=== PATIENT | male | born 1960 | race Caucasian/White ===

== ENCOUNTER 2021-09-18 21:30 | Observation (INO) ==
[2021-09-18] MEDS ORDERED: 0.9 % Sodium Chloride 1,000 ML IVC ONE (21:51)
[2021-09-18] MEDS ORDERED: Iopamidol - 370 500 ML MLS IVP ONE (21:51)
[2021-09-18 22:12] LABS: Basophils % 0.2 %; Eosinophils # 0.2 K/mcL (0.0-0.6); Eosinophils % 2.7 %; Hematocrit 31.7 % (37.5-50.1); Hemoglobin 10.6 g/dL (12.9-16.9); Immature Granulocytes % 0.2 % (0-4); Lymphocytes # 1.8 K/mcL (0.6-4.6); Lymphocytes % 21.6 %; Mean Corpuscular HGB Conc 33.4 g/dL (31.6-35.5); Mean Corpuscular Hemoglobin 31.7 pg (28.0-33.3); Mean Corpuscular Volume 94.9 fL (83.0-100.0); Mean Platelet Volume 10.6 fL (9.4-12.4); Monocytes # 0.6 K/mcL (0.0-1.3); Monocytes % 7.3 %; Neutrophils # 5.8 K/mcL (1.6-8.9); Platelet Count 192 K/mcL (140-400); Red Blood Count 3.34 M/mcL (4.19-5.50); Red Cell Distribution Width 13.4 % (11.5-14.5); White Blood Count 8.5 K/mcL (4.3-11.1)
[2021-09-18 22:25] LABS: Prothrombin Time 11.1 Seconds (9.4-12.1)
[2021-09-18 22:27] LABS: Alanine Aminotransferase 42 Units/L (7-52); Albumin 4.1 g/dL (3.5-5.7); Albumin/Globulin Ratio 1.5 (1.1-2.2); Alkaline Phosphatase 67 Units/L (34-104); Aspartate Amino Transferase 59 Units/L (13-39); BUN/Creatinine Ratio 12 (6-26); Bilirubin,Total 0.6 mg/dL (0.3-1.0); Blood Urea Nitrogen 58 mg/dL (6-20); Calcium 8.6 mg/dL (8.6-10.3); Carbon Dioxide 22 mEq/L (23-29); Chloride 100 mEq/L (98-107); Globulin 2.7 g/dL (2.4-3.5); Glucose 93 mg/dL (70-105); Osmolality,Calculated 292 (280-300); Potassium 5.2 mEq/L (3.5-5.1); Sodium 133 mEq/L (136-145); Total Protein 6.8 g/dL (6.4-8.9); eGFR For African Americans 16 (> 60); eGFR For Non-African Americans 13 (> 60)
[2021-09-18 22:28] LABS: Activated Partial Thrombo Time 48.1 Seconds (26.0-36.0); Troponin I < 0.03 ng/mL (< 0.04)
[2021-09-19 00:56] LABS: Bacteria,Urine Few per hpf (None-Few); Bilirubin,Urine Negative (Negative); Blood,Urine Large (Negative); Clarity,Urine Clear (Clear); Color,Urine Yellow (Yellow); Glucose,Urine (UA) Normal (Normal); Hyaline Casts,Urine Many per lpf (None Seen); Ketones,Urine Negative (Negative); Leukocyte Esterase,Urine Negative (Negative); Mucus,Urine Few per lpf (None-Few); Nitrite,Urine Negative (Negative); PH,Urine 5.5 pH Units (5.0-8.0); Protein,Urine 50 mg/dL (Neg-Trace); RBC,Urine 0-3 per hpf (0-3); Specific Gravity,Urine 1.023 (1.010-1.025); Squamous Epithelial Cell,Urine Few per hpf (None-Few); Urobilinogen,Urine Normal (Normal); WBC,Urine 0-3 per hpf (0-3)
[2021-09-19] MEDS ORDERED: Iopamidol - 370 500 ML MLS IVP ONE (01:07)
[2021-09-19] MEDS ORDERED: 0.9 % Sodium Chloride 1,000 ML IV ONE (01:17)
[2021-09-19 02:20] LABS: Creatine Kinase 4042 Units/L (30-223)
[2021-09-19] MEDS ORDERED: *HR* Promethazine 25 MG/ML VIAL IM PRN (03:35)
[2021-09-19] MEDS ORDERED: Acetaminophen 325 MG TABLET PO PRN (03:35)
[2021-09-19] MEDS ORDERED: Melatonin 3 MG TABLET PO PRN (03:35)
[2021-09-19] MEDS ORDERED: Naloxone 0.4 MG/ML INJ IVP PRN (03:35)
[2021-09-19] MEDS ORDERED: Ondansetron 4 MG/2 ML VIAL IVP PRN (03:35)
[2021-09-19] MEDS ORDERED: Perflutren Lipid Microsphere 1.3 ML in 0.9 % Sodium Chloride 8.7 ML IVP PRN (03:37)
[2021-09-19] MEDS ORDERED: Ringers Solution, Lactated 1,000 ML IVC SCH (03:45)
[2021-09-19] MEDS ORDERED: *HR* Dextrose 50 % in Water (Syg) 50 ML SYRINGE IVP PRN (04:02)
[2021-09-19] MEDS ORDERED: Dextrose Gel 15 GM/37.5 ML TUBE PO PRN ×2 (04:02)
[2021-09-19] MEDS ORDERED: D5% in Water 1,000 ML IVC PRN (04:02)
[2021-09-19] MEDS: Ringers Solution, Lactated 1,000 ML IVC SCH ×2 (05:52→10:53)
[2021-09-19 05:57] LABS: Basophils % 0.3 %; Eosinophils # 0.2 K/mcL (0.0-0.6); Eosinophils % 2.2 %; Hematocrit 34.3 % (37.5-50.1); Hemoglobin 11.3 g/dL (12.9-16.9); Immature Granulocytes % 0.4 % (0-4); Lymphocytes # 1.8 K/mcL (0.6-4.6); Lymphocytes % 20.7 %; Mean Corpuscular HGB Conc 32.9 g/dL (31.6-35.5); Mean Corpuscular Hemoglobin 31.2 pg (28.0-33.3); Mean Corpuscular Volume 94.8 fL (83.0-100.0); Monocytes # 0.5 K/mcL (0.0-1.3); Monocytes % 5.7 %; Neutrophils # 6.3 K/mcL (1.6-8.9); Platelet Count 218 K/mcL (140-400); Red Blood Count 3.62 M/mcL (4.19-5.50); Red Cell Distribution Width 13.5 % (11.5-14.5); Segmented Neutrophils % 70.7 %; White Blood Count 8.9 K/mcL (4.3-11.1)
[2021-09-19 06:01] LABS: Prothrombin Time 11.2 Seconds (9.4-12.1)
[2021-09-19 06:17] LABS: Troponin I 0.18 ng/mL (< 0.04)
[2021-09-19] MEDS ORDERED: *HR* Heparin 5,000 UNIT/ML VIAL IVP PRN ×2 (06:22)
[2021-09-19 06:30] LABS: Calcium 8.6 mg/dL (8.6-10.3); Chol/HDL Ratio 3.1 (0-4.9); Potassium 5.3 mEq/L (3.5-5.1)
[2021-09-19] MEDS ORDERED: Heparin 25,000UNIT/250ML 1/2NS 25,000 UNIT/250 ML IV.SOLN IVC SCH (06:30)
[2021-09-19] MEDS ORDERED: Calcium Gluconate 1gm/50mL 1 GM/50 ML BAG IVPB ONE (06:59)
[2021-09-19 07:12] LABS: Hematocrit 32.4 % (37.5-50.1); Hemoglobin 10.9 g/dL (12.9-16.9); Mean Corpuscular HGB Conc 33.6 g/dL (31.6-35.5); Mean Corpuscular Hemoglobin 31.5 pg (28.0-33.3); Mean Corpuscular Volume 93.6 fL (83.0-100.0); Mean Platelet Volume 10.5 fL (9.4-12.4); Platelet Count 184 K/mcL (140-400); Red Blood Count 3.46 M/mcL (4.19-5.50); Red Cell Distribution Width 13.3 % (11.5-14.5); White Blood Count 8.7 K/mcL (4.3-11.1)
[2021-09-19 07:20] LABS: Heparin anti-factor XA UFH < 0.04 IU/mL (0.30-0.70); Prothrombin Time 11.2 Seconds (9.4-12.1)
[2021-09-19 10:36] LABS: Protein/Creatinine Ratio,Urine 0.75 mg/mg (0.00-0.20); Sodium, Urine 67.8 mEq/L
[2021-09-19] MEDS: Aspirin 81 MG TAB.CHEW PO SCH (11:57)
[2021-09-19 12:48] LABS: Uric Acid 7.7 mg/dL (2.3-7.6)
[2021-09-19] MEDS: amLODIPine 5 MG TABLET PO SCH (13:09)
[2021-09-19] MEDS ORDERED: *HR* Heparin 5,000 UNIT/ML VIAL SQ SCH (14:00)
[2021-09-19] MEDS ORDERED: 0.9 % Sodium Chloride 1,000 ML ONE (16:43)
[2021-09-19] MEDS: carvediloL 6.25 MG TABLET PO SCH (16:45)
[2021-09-19] MEDS: 0.9 % Sodium Chloride 1,000 ML IVC SCH (16:47)
[2021-09-20] MEDS: 0.9 % Sodium Chloride 1,000 ML IVC SCH (01:09)
[2021-09-20 03:24] LABS: Basophils % 0.5 %; Eosinophils # 0.2 K/mcL (0.0-0.6); Hematocrit 33.5 % (37.5-50.1); Hemoglobin 11.2 g/dL (12.9-16.9); Immature Granulocytes % 0.3 % (0-4); Lymphocytes # 1.8 K/mcL (0.6-4.6); Lymphocytes % 23.8 %; Mean Corpuscular HGB Conc 33.4 g/dL (31.6-35.5); Mean Corpuscular Hemoglobin 31.3 pg (28.0-33.3); Mean Corpuscular Volume 93.6 fL (83.0-100.0); Mean Platelet Volume 10.9 fL (9.4-12.4); Monocytes # 0.5 K/mcL (0.0-1.3); Monocytes % 6.6 %; Neutrophils # 4.9 K/mcL (1.6-8.9); Platelet Count 223 K/mcL (140-400); Red Blood Count 3.58 M/mcL (4.19-5.50); Red Cell Distribution Width 13.1 % (11.5-14.5); Segmented Neutrophils % 65.8 %; White Blood Count 7.5 K/mcL (4.3-11.1)
[2021-09-20] MEDS ORDERED: tiZANidine 4 MG TABLET PO ONE (03:24)
[2021-09-20 03:39] LABS: Calcium 9.2 mg/dL (8.6-10.3); Potassium 5.4 mEq/L (3.5-5.1)
[2021-09-20] MEDS: carvediloL 6.25 MG TABLET PO SCH (08:20)
[2021-09-20] MEDS: Aspirin 81 MG TAB.CHEW PO SCH (08:20)
[2021-09-20] MEDS: amLODIPine 5 MG TABLET PO SCH (08:20)
[2021-09-20] MEDS ORDERED: SODIUM ZIRCONIUM CYCLOSILICATE 5 GM POWD.PACK PO SCH (10:45)
[2021-09-20 10:49] VITALS: BP 163/88; PULSE 87; TEMP 98.2; O2SAT 97
[2021-09-20 11:17] LABS: Calcium 9.2 mg/dL (8.6-10.3)
[2021-09-21] MEDS ORDERED: Valsartan 160 MG TABLET PO SCH (09:00)
== END 2021-09-20 14:03 | disposition home or self-care (01) ==
LOC: 2ANU 21:30 → EMEROOARM 21:30 → 2ANU 09-19 03:56
PROVIDERS: ADMIT Internal Medicine; ATTEND Internal Medicine